=== PATIENT | male | born 1985 | race Two or more races ===

== ENCOUNTER 2018-05-31 11:15 | Emergency (ER) | payer SELFPAY | END 2018-05-31 12:56 | disposition home or self-care (01) | LOC: ER 11:15 | DX: S80.12XA Contusion of left lower leg, initial encounter (principal); W21.89XA Striking against or struck by other sports equipment, initial encounter; Y93.66 Activity, soccer; Y92.89 Other specified places as the place of occurrence of the external cause; Y99.8 Other external cause status | CPT/HCPCS: 73700; 99284 ==

== ENCOUNTER 2019-08-21 15:07 | Emergency (ER) | payer SELFPAY ==
[~2019-08-21] VITALS: Ht 172.7 cm; Wt 70.3 kg
[~2019-08-21 15:07] MED LIST: NAPR-683 PO
[2019-08-21 15:34] VITALS: BP 125/65
--- NOTE | 2019-08-21 15:51 | RAD ---
WRIST 3V LEFT History: Pain. Injury. Technique: 3 views left wrist. Comparison: None. Findings: Nondisplaced distal left intra-articular radial fracture involving the volar surface. Small fracture fragment along the volar aspect of the distal radius on lateral view. Otherwise, normal alignment. No additional fracture. Impression: 1. Acute intra-articular distal left radial fracture. Electronically signed by: Brian De La Fuente DO (08/21/2019 3:48 PM) [facility]
[2019-08-21] MEDS ORDERED: HYDR-3164 PO (16:30)
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
== END 2019-08-21 16:35 | disposition home or self-care (01) ==
LOC: ER 15:07
DX: S52.572A Other intraarticular fracture of lower end of left radius, initial encounter for closed fracture (principal); V87.8XXA Person injured in other specified noncollision transport accidents involving motor vehicle (traffic), initial encounter; Y93.89 Activity, other specified; Y92.410 Unspecified street and highway as the place of occurrence of the external cause; Y99.8 Other external cause status
CPT/HCPCS: 29125; 73110; 99284